=== PATIENT | female | born 1955 | race Caucasian/White ===

== ENCOUNTER 2020-11-23 18:51 | Emergency (ER) | payer OTHER ==
--- NOTE | 2020-11-23 19:32 | NUR ---
NOT IN [facility]BY
--- NOTE | 2020-11-23 19:45 | NUR ---
NOT IN [facility]BY
--- NOTE | 2020-11-23 20:51 | NUR ---
NOT IN [facility]BY
== END 2020-11-23 20:53 | disposition left against medical advice (07) ==
LOC: ER 18:54
DX: T14.8XXA Other injury of unspecified body region, initial encounter (principal); Z53.21 Procedure and treatment not carried out due to patient leaving prior to being seen by health care provider; X58.XXXA Exposure to other specified factors, initial encounter; Y93.9 Activity, unspecified; Y92.89 Other specified places as the place of occurrence of the external cause; Y99.9 Unspecified external cause status